=== PATIENT | female | born 1995 | race Caucasian/White ===

== ENCOUNTER 2020-07-15 21:43 | Emergency (ER) | payer OTHER ==
[2020-07-15 22:30] LABS: HEMOGLOBIN 13.2 gm/dl (12.3-15.3); RED BLOOD COUNT 4.28 M/UL (4.00-5.10); WHITE BLOOD COUNT 12.8 K/UL (4.5-11.0)
[2020-07-15 22:49] LABS: BUN/CREATININE RATIO 13 (0-10)
[2020-07-15] MEDS ORDERED: KEFLEX750 MG PO (23:30)
[2020-07-15] MEDS ORDERED: DIFLUCAN100 MG PO (23:32)
== END 2020-07-16 00:50 | disposition home or self-care (01) ==
LOC: ER1 21:43
PROVIDERS: Family Medicine
DX: N12 Tubulo-interstitial nephritis, not specified as acute or chronic (principal); F17.210 Nicotine dependence, cigarettes, uncomplicated
CPT/HCPCS: 71046; 80053; 81001; 82550; 82553; 83605; 84484; 85025; 87040; 87086; 99284